=== PATIENT | male | born 1955 | race Caucasian/White ===

== ENCOUNTER → 2016-09-01 | Outpatient (CLI) | payer OTHER ==
[~2016-09-01] MED LIST: ASPI81TA28 PO; CYAN10005 PO; FERR325T51 PO; GEMF600T3 PO; GLIP2.5T11 PO; HYDR-5688 PO; METF-384 PO; METF1000 PO; MULT-506 PO; OXYC-164 PO; OXYC-609 PO; OXYC1TAB3 PO; PRED50TA PO; SIMV40TA4 PO; XNX25 PO; ZCR40 PO
[2016-09-02 05:51] LABS: ESTIMATED AVERAGE GLUCOSE 143 mg/dl; HA1C FLAG Normal (Normal)
== END | disposition home or self-care (01) ==
LOC: C.LAB1850 16:23
PROVIDERS: ATTEND Internal Medicine
DX: E11.9 Type 2 diabetes mellitus without complications (principal)

== ENCOUNTER → 2016-12-29 | Outpatient (CLI) | payer OTHER ==
[2016-12-29 12:42] LABS: BASO % 0.1 %; BASO ABS # 0.01 K/uL (0-0.2); COMPLETE YES; EOS % 1.1 %; HEMATOCRIT 41.3 % (42-52); IG% 0.3 %; LYMPH % 22.9 %; LYMPH ABS # 1.62 K/uL (1.2-3.4); MEAN CELL VOLUME 91.8 fL (80-100); MEAN CORPUSCULAR HEMOGLOBIN 30.2 pg (25-34); MEAN CORPUSCULAR HGB CONC 32.9 g/dl (32-36); MEAN PLATELET VOLUME 9.6 fL (7.4-10.4); MONO % 9.7 %; NEUT % 65.9 %; PLATELET COUNT 274 K/uL (130-400); WHITE BLOOD COUNT 7.08 K/uL (4.8-10.8)
[2016-12-29 12:56] LABS: ESTIMATED AVERAGE GLUCOSE 117 mg/dl; HA1C FLAG Normal (Normal)
[2016-12-29 13:12] LABS: ALT/SGPT 46 U/L (12-78); AST/SGOT 26 U/L (15-37); BLOOD UREA NITROGEN 16 mg/dl (7-18); BUN/CREATININE RATIO 17.9 (10-20); CALCIUM 9.5 mg/dl (8.5-10.1); CARBON DIOXIDE 30 mmol/L (21-32); CHLORIDE 105 mmol/L (98-107); GLUCOSE 127 mg/dl (70-99); POTASSIUM 3.9 mmol/L (3.5-5.1); SODIUM 142 mmol/L (136-145)
[2016-12-29 13:23] LABS: CHOLESTEROL 136 mg/dl (0-200); CHOLESTEROL/HDL RATIO 3.5; HDL CHOLESTEROL 39 mg/dl; LDL CHOLESTEROL CALCULATED 75 mg/dl; THYROID STIMULATING HORMONE 0.104 uIu/ml (0.300-4.500); TRIGLYCERIDES 111 mg/dl (0-150); VERY LOW DENSITY LIPOPROT CALC 22 mg/dl
== END | disposition home or self-care (01) ==
LOC: C.LAB1850 11:26
PROVIDERS: ATTEND Physician Assistant
DX: E11.9 Type 2 diabetes mellitus without complications (principal)

== ENCOUNTER → 2017-03-04 | Outpatient (CLI) | payer OTHER ==
[~2017-03-04] MED LIST changes: -CYAN10005 PO; -GLIP2.5T11 PO; -METF-384 PO; -OXYC-609 PO; -OXYC1TAB3 PO; -PRED50TA PO; -XNX25 PO; -ZCR40 PO
--- NOTE | 2017-03-04 15:11 | DIAGNOSTIC IMAGING REPORT ---
RIGHT FOOT MIN 3 VIEWS ROUTINE CLINICAL HISTORY: 61 years-old Male presenting with right heel pain. Right. TECHNIQUE: Frontal, oblique, and lateral views of the right foot were obtained. COMPARISON: None. FINDINGS: No acute fracture, malalignment, or radiopaque foreign body. Bony spurring noted at the inferior calcaneus. No other degenerative change. IMPRESSION: 1. Inferior calcaneal bone spurring. This finding can be incidental/asymptomatic or associated with plantar fasciitis in some patients. No acute osseous injury. Electronically signed by: Sj Jacobsen 03/04/2017 3:10 PM Dictated Date/Time: 03/04/2017 3:07 PM
== END | disposition home or self-care (01) ==
LOC: C.RAD1850 14:45
PROVIDERS: ATTEND Physician Assistant
DX: M79.673 Pain in unspecified foot (principal)

== ENCOUNTER → 2017-05-04 | Outpatient (CLI) | payer OTHER ==
[2017-05-04 16:04] LABS: THYROID STIMULATING HORMONE 1.98 uIu/ml (0.300-4.500)
[2017-05-05 06:08] LABS: ESTIMATED AVERAGE GLUCOSE 117 mg/dl; HA1C FLAG Normal (Normal)
== END | disposition home or self-care (01) ==
LOC: C.LAB1850 14:15
PROVIDERS: ATTEND Physician Assistant
DX: R94.6 Abnormal results of thyroid function studies (principal); E11.9 Type 2 diabetes mellitus without complications; E78.00 Pure hypercholesterolemia, unspecified

== ENCOUNTER → 2017-06-07 | Outpatient (CLI) | payer OTHER ==
--- NOTE | 2017-06-07 15:47 | DIAGNOSTIC IMAGING REPORT ---
THORACIC SPINE 3 VIEWS ROUTINE CLINICAL HISTORY: 61 years-old Male presenting with M54.5 Chronic low back [id number]. TECHNIQUE: 3 views of the thoracic spine were obtained. COMPARISON: 01/08/2016. FINDINGS: Vertebral bodies maintain normal height and alignment. Intervertebral disc spaces preserved. Multilevel degenerative changes noted throughout the thoracic spine. Degenerative changes in the lower cervical spine partially visualized. No radiographic evidence of compression deformity or subluxation. No scoliotic curvature. Visualized portion of the thorax and upper abdomen within normal limits. IMPRESSION: Multilevel degenerative changes. No radiographic evidence of compression fracture. Electronically signed by: Sj Jacobsen M.D. 06/07/2017 3:45 PM Dictated Date/Time: 06/07/2017 3:44 PM
--- NOTE | 2017-06-07 16:46 | DIAGNOSTIC IMAGING REPORT ---
LUMBAR SPINE 5 VIEWS CLINICAL HISTORY: Chronic low back pain. FINDINGS: Five views of the lumbar spine are compared to study dated 01/08/2016. The skeletal structures are osteopenic. There is no radiographic evidence of fracture or malalignment. Vertebral body height and alignment are maintained throughout the lumbar spine. The transverse and spinous processes appear intact. Anterior osteophytes are seen throughout. Mild facet arthropathy is seen in the lower lumbar region. There is no evidence of spondylolysis. There is mild disc space narrowing at L4-L5 and L5-S1. Mild endplate sclerosis is seen at L2-L3. The visualized bony pelvis appears intact. Sclerotic change is noted in the sacroiliac joints. Large enthesophytes arise in the anterior superior iliac spine bilaterally. There is a nonobstructed abdominal bowel gas pattern. Mild atherosclerotic calcification is noted in the abdominal aorta. IMPRESSION: 1. No acute bony abnormality is seen involving the lumbosacral spine. 2. Osteopenia and spondylotic change as above. Dictated: 06/07/2017 3:35 PM Transcribed: 06/07/2017 4:45 PM [email or web address] Electronically signed by: Jaron Du M.D. 06/08/2017 7:11 AM Dictated Date/Time: 06/07/2017 3:35 PM
== END | disposition home or self-care (01) ==
LOC: C.RAD1850 14:41
PROVIDERS: ATTEND Physician Assistant
DX: M54.5 Low back pain (principal); M85.88 Other specified disorders of bone density and structure, other site

== ENCOUNTER 2017-06-15 17:17 | Emergency (ER) | payer OTHER ==
[~2017-06-15] VITALS: Ht 170.2 cm; Wt 99.6 kg
[~2017-06-15 17:17] MED LIST changes: -ASPI81TA28 PO; -HYDR-5688 PO
[2017-06-15 17:35] VITALS: TEMP 36.9; Ht 170.2 cm; Wt 99.6 kg
[2017-06-15] MEDS ORDERED: MoRPHine SULFATE 10 MG/ML CARP/VIAL IM STA (17:56)
[2017-06-15] MEDS ORDERED: DEXAMETHASONE SOD INJ 10 MG/ML VIAL IM ONE (18:00)
[2017-06-15] MEDS ORDERED: GLIP2.5T11 PO (18:39)
[2017-06-15] MEDS ORDERED: METF-384 PO (18:39)
[2017-06-15] MEDS ORDERED: ZCR40 PO (18:39)
[2017-06-15] MEDS ORDERED: OXYC-609 PO (18:39)
[2017-06-15] MEDS ORDERED: XNX25 PO (18:39)
[2017-06-15] MEDS ORDERED: CYAN10005 PO (18:42)
[2017-06-15 19:28] LABS: BUN/CREATININE RATIO 19.8 (10-20); CALCIUM 9.4 mg/dl (8.5-10.1); CREATININE 0.77 mg/dl (0.60-1.40)
--- NOTE | 2017-06-15 21:07 | EMERGENCY ROOM VISIT NOTE ---
History First contact with patient: 17:45 Chief Complaint: BACK PAIN Stated Complaint: BACK PAIN History of Present Illness The patient is a 61 year old male who presents to the Emergency Room with complaints of low back pain with radiation into the right buttocks. The patient denies any pain radiating down his legs or any new numbness and tingling. The patient denies any loss of bowel or bladder control. The patient denies any saddle anesthesia. The patient states that he had low back surgery by Dr. Fox in 2008. Since that time he has some numbness in his right leg on the anterior aspect therefore that is chronic. He states he has had chronic back pain since surgery. He is currently taking [place] 5/325 mg 3 tablets daily and oxycodone 5 mg daily for his chronic pain. He states he gets this pain medication from his family doctor, Dr. Jacobs. The patient denies any new injury to the back. He denies any fall. He states the pain is worse when he goes from a sitting to a standing position. Review of Systems 10 system review was performed and was negative unless stated otherwise history of present illness. Social History Smoking Status: Never Smoker Alcohol Use: occasionally Marital Status: Housing Status: lives with family Occupation Status: unemployed Current/Historical Medications Scheduled Aspirin (Aspirin Ec), 81 MG PO DAILY Cyanocobalamin (Vitamin B-12), 1,000 MCG PO DAILY Gemfibrozil (Lopid), 600 MG PO BID Glipizide (Glipizide Er), 2.5 MG PO DAILY Metformin Hcl (Glucophage), 1,000 MG PO BID Multivitamin (Multivitamin), 1 TAB PO DAILY Simvastatin (Simvastatin), 40 MG PO HS Scheduled PRN Alprazolam (Alprazolam), 0.25-0.5 MG PO HS PRN for Anxiety Hydrocodone/Acetaminophen 5MG/325MG ([place] 5MG/325MG), 1 TAB PO Q6H PRN for Pain Oxycodone HCl (Oxycodone HCl), 5 MG PO Q6H PRN for Pain Physical Exam Vital Signs Date Time Temp Pulse Resp B/P (MAP) Pulse Ox O2 Delivery O2 Flow Rate FiO2 06/15/17 19:50 63 18 138/83 97 Room Air 06/15/17 17:35 36.9 93 20 168/78 98 Room Air Physical Exam PHYSICAL EXAM: Vital Signs normal: Reviewed Nurse's notes and agree. GEN.: 61- year-old male appears in no acute distress. MENTAL STATUS: Alert and oriented in no acute distress. LUMBAR SPINE: No gross bony abnormality noted. Patient is nontender to palpation over the spinous processes. He is tender to palpation over the right paravertebral region, left side nontender. He has limited range of motion in all directions secondary to pain. Muscle strength is 5 out of 5 bilateral lower extremities and symmetrical. NEURO: Patient is able to heel and toe walk without difficulty. I lateral patellar and Achilles reflexes are 2+. Sensation is intact to pinprick bilateral lower extremities. Negative straight leg raise bilaterally. Medical Decision & Procedures Laboratory Results 06/15/17 18:43 Test 06/15/17 18:43 Anion Gap 8.0 mmol/L (3-11) Est Creatinine Clear Calc Drug Dose 113.3 ml/min Estimated GFR () 113.5 Estimated GFR (Non- 97.9 BUN/Creatinine Ratio 19.8 (10-20) Calcium Level 9.4 mg/dl (8.5-10.1) Medications Administered Medications (Trade) Dose Ordered Sig/Juana Route Start Time Stop Time Status Last Admin Dose Admin Morphine Sulfate (MoRPHine SULFATE INJ) 10 mg NOW STAT IM 06/15/17 17:56 06/15/17 18:01 DC 06/15/17 18:05 10 MG Dexamethasone Sodium Phosphate (Decadron Inj) 10 mg NOW ONCE IM 06/15/17 18:00 06/15/17 18:01 DC 06/15/17 18:05 10 MG ED Course The patient was evaluated. The patient was given Decadron 10 mg IM and morphine 10 mg IM. IV access was obtained. Renal profile was normal. Due to the patient's surgical history an MRI of the lower spine was ordered . At the end of my shift the MRI was still pending therefore the patient's case was signed out to Murtaza Lawton PA-C. Please see his note for remainder of patient's care. Medical Decision Differential diagnosis include lumbar strain, spinal stenosis, herniated disc, scar tissue secondary to surgery. Due to the patient's history of back surgery as well as not being controlled on narcotics on an outpatient an MRI was performed. Medication Reconcilliation Current Medication List: was personally reviewed by me Blood Pressure Screening Patient's blood pressure: Elevated blood pressure Blood pressure disposition: Elevated BP felt to be situational Impression Primary Impression: Low back pain Departure Information Referrals Vahe Jacobs M.D. (PCP) Patient Instructions [facility]
--- NOTE | 2017-06-15 21:31 | DIAGNOSTIC IMAGING REPORT ---
ORBIT RADIOGRAPHS 3 VIEWS HISTORY: pre-MRI screening. COMPARISON: None. FINDINGS: There are no radiopaque foreign bodies identified within the orbits. IMPRESSION: No radiopaque foreign bodies identified within the orbits. Electronically signed by: Ranulfo West M.D. 06/15/2017 9:30 PM Dictated Date/Time: 06/15/2017 9:30 PM
[2017-06-15] MEDS ORDERED: HYDR-5688 PO (21:55)
[2017-06-15] MEDS ORDERED: ASPI81TA28 PO (21:55)
[2017-06-15] MEDS ORDERED: GADAVIST IV PRN (22:15)
--- NOTE | 2017-06-15 22:43 | DIAGNOSTIC IMAGING REPORT ---
LUMBAR SPINE MRI WITH AND WITHOUT CONTRAST HISTORY: acute on chronic low back pain/prior surgery TECHNIQUE: Multiplanar multisequence MRI of the lumbar spine was performed both before and after the intravenous administration of contrast. COMPARISON: Lumbar spine 06/07/2017. FINDINGS: For the purpose of the report the L5-S1 disc space will be located on axial image 27 of 30. Alignment and curvature are intact. No fractures within the lumbar spine. Mild disc space narrowing at L5-S1 persists. There is partial fusion involving the posterior aspect of the L5-S1 vertebral bodies. Increased T2 signal within the anterior L5-S1 disc space. However, there is no endplate erosions. Therefore, this is likely due to long-standing postoperative and degenerative change. Mild endplate degenerative changes at L5. The conus terminates at the L1 level. L1-L2: No significant central canal or neural foraminal narrowing. L2-L3: No significant central canal or neural foraminal narrowing. L3-L4: No significant central canal or neural foraminal narrowing. L4-L5: No significant central canal or neural foraminal narrowing. L5-S1: Postoperative changes consistent with prior right-sided hemilaminectomy. No significant central canal narrowing. Focal central/right paracentral posterior bony protrusion of the fused L5-S1 disc at this level which abuts and slightly compresses the transiting right S1 nerve root. This also results in mild to moderate right-sided neural foraminal narrowing. Mild soft tissue enhancement at the epidural space adjacent to the bony protrusion is likely due to postoperative granulation tissue. No significant left-sided neural foraminal narrowing. IMPRESSION: 1. There are postoperative changes at L5-S1 suggestive of a prior right-sided hemilaminectomy. There appears to be fusion of the posterior aspect of the L5-S1 vertebral bodies with focal bony protrusion posteriorly. This is most pronounced within the central/right paracentral location. This abuts and slightly compresses the transiting right S1 nerve root and results in mild to moderate right-sided neural foraminal narrowing at L5-S1. Mild soft tissue enhancement at the epidural space adjacent to the posterior bony protrusion is likely due to postoperative granulation tissue. 2. Otherwise, no significant central canal or neural foraminal narrowing within the remaining lumbar spine levels. Electronically signed by: Ranulfo West M.D. 06/15/2017 10:41 PM Dictated Date/Time: 06/15/2017 10:30 PM
[2017-06-15] MEDS ORDERED: PRED50TA PO (23:25)
[2017-06-15] MEDS ORDERED: OXYC1TAB3 PO (23:25)
--- NOTE | 2017-06-15 23:26 | EMERGENCY ROOM VISIT NOTE ---
ED Visit Note First contact with patient: 21:12 Patient case was signed out to me by Destiny Montejo PA-C at 2100 hrs. pending MRI. MRI results as below. Please refer to her history and physical examination regarding the patient. MRI reveals postoperative change, no emergent process. He is recommended follow up with his established orthopedic surgeon, or Dr. Downing or Dr. Mcnamara, as the surgeon who performed this is no longer affiliated with the hospital. He is able to ambulate. I will initiate a short course of steroids and pain medicine in addition to his baseline pain medicine. P D MP reveals no red flags. No evidence of cauda equina syndrome on exam. He appears stable for outpatient management. MRI was discussed with the attending physician. IMAGING: LUMBAR SPINE MRI WITH AND WITHOUT CONTRAST HISTORY: acute on chronic low back pain/prior surgery TECHNIQUE: Multiplanar multisequence MRI of the lumbar spine was performed both before and after the intravenous administration of contrast. COMPARISON: Lumbar spine 06/07/2017. FINDINGS: For the purpose of the report the L5-S1 disc space will be located on axial image 27 of 30. Alignment and curvature are intact. No fractures within the lumbar spine. Mild disc space narrowing at L5-S1 persists. There is partial fusion involving the posterior aspect of the L5-S1 vertebral bodies. Increased T2 signal within the anterior L5-S1 disc space. However, there is no endplate erosions. Therefore, this is likely due to long-standing postoperative and degenerative change. Mild endplate degenerative changes at L5. The conus terminates at the L1 level. L1-L2: No significant central canal or neural foraminal narrowing. L2-L3: No significant central canal or neural foraminal narrowing. L3-L4: No significant central canal or neural foraminal narrowing. L4-L5: No significant central canal or neural foraminal narrowing. L5-S1: Postoperative changes consistent with prior right-sided hemilaminectomy. No significant central canal narrowing. Focal central/right paracentral posterior bony protrusion of the fused L5-S1 disc at this level which abuts and slightly compresses the transiting right S1 nerve root. This also results in mild to moderate right-sided neural foraminal narrowing. Mild soft tissue enhancement at the epidural space adjacent to the bony protrusion is likely due to postoperative granulation tissue. No significant left-sided neural foraminal narrowing. IMPRESSION: 1. There are postoperative changes at L5-S1 suggestive of a prior right-sided hemilaminectomy. There appears to be fusion of the posterior aspect of the L5-S1 vertebral bodies with focal bony protrusion posteriorly. This is most pronounced within the central/right paracentral location. This abuts and slightly compresses the transiting right S1 nerve root and results in mild to moderate right-sided neural foraminal narrowing at L5-S1. Mild soft tissue enhancement at the epidural space adjacent to the posterior bony protrusion is likely due to postoperative granulation tissue. 2. Otherwise, no significant central canal or neural foraminal narrowing within the remaining lumbar spine levels. Electronically signed by: Ranulfo West M.D. 06/15/2017 10:41 PM Dictated Date/Time: 06/15/2017 10:30 PM Current/Historical Medications Scheduled Aspirin (Aspirin Ec), 81 MG PO DAILY Cyanocobalamin (Vitamin B-12), 1,000 MCG PO DAILY Gemfibrozil (Lopid), 600 MG PO BID Glipizide (Glipizide Er), 2.5 MG PO DAILY Metformin Hcl (Glucophage), 1,000 MG PO BID Multivitamin (Multivitamin), 1 TAB PO DAILY Prednisone (Prednisone), 50 MG PO DAILY Simvastatin (Simvastatin), 40 MG PO HS Scheduled PRN Alprazolam (Alprazolam), 0.25-0.5 MG PO HS PRN for Anxiety Hydrocodone/Acetaminophen 5MG/325MG ([place] 5MG/325MG), 1 TAB PO Q6H PRN for Pain Oxycodone HCl (Oxycodone HCl), 5 MG PO Q6H PRN for Pain Oxycodone Ir (Roxicodone Ir), 1-2 TAB PO Q4H PRN for Pain Allergies Coded Allergies: No Known Allergies (Unverified , 06/15/17) Vital Signs Date Time Temp Pulse Resp B/P (MAP) Pulse Ox O2 Delivery O2 Flow Rate FiO2 06/15/17 23:33 71 20 159/86 95 06/15/17 22:29 74 20 154/83 93 Room Air 06/15/17 19:50 63 18 138/83 97 Room Air 06/15/17 17:35 36.9 93 20 168/78 98 Room Air Laboratory Results 06/15/17 18:43 Test 06/15/17 18:43 Anion Gap 8.0 mmol/L (3-11) Est Creatinine Clear Calc Drug Dose 113.3 ml/min Estimated GFR () 113.5 Estimated GFR (Non- 97.9 BUN/Creatinine Ratio 19.8 (10-20) Calcium Level 9.4 mg/dl (8.5-10.1) Medications Administered Medications (Trade) Dose Ordered Sig/Juana Route Start Time Stop Time Status Last Admin Dose Admin Morphine Sulfate (MoRPHine SULFATE INJ) 10 mg NOW STAT IM 06/15/17 17:56 06/15/17 18:01 DC 06/15/17 18:05 10 MG Dexamethasone Sodium Phosphate (Decadron Inj) 10 mg NOW ONCE IM 06/15/17 18:00 06/15/17 18:01 DC 06/15/17 18:05 10 MG Departure Information Impression Primary Impression: Low back pain Dispostion Home / Self-Care Condition GOOD Prescriptions Prednisone (Prednisone) 50 Mg Tab 50 MG PO DAILY for 4 Days, #4 TAB Prov: Murtaza Lawton PA-C 06/15/17 Oxycodone Ir (Roxicodone Ir) 5 Mg Tab 1-2 TAB PO Q4H Y for Pain, #15 TAB For Initial Treatment Prov: Murtaza Lawton PA-C 06/15/17 Referrals Vahe Jacobs M.D. (PCP) Buck Downing D.O. Andrey Mcnamara, DO Patient Instructions [facility] Additional Instructions You have been treated in the Emergency Department for Back Pain. You have received pain medicine in the emergency department which impairs your ability to operate a vehicle. It is illegal for you to drive after receiving these medicines. You have been prescribed Oxy IR to be used for pain control. This is a narcotic medication. You cannot drive or consume alcohol while on this medicine. This medicine should only be used for pain that cannot be controlled with over-the- counter pain medicines. You have been prescribed Prednisone 50 mg to be taken orally once a day for the next 4 days. This is an anti-inflammatory medicine to be used to help minimize your symptoms. You should take the COMPLETE course of the medication. For pain control, you can use the following icld-ain-hthjatr medicines (if >12 yo): If this is an acute injury, ice can be applied to the area of pain for the first 3 days to help decrease pain and inflammation. After the first 3 days, a heating pad can be used over the area for continued soothing relief. You should schedule a follow-up appointment in 2-3 days with your Primary Care Provider for further evaluation and treatment of your back pain. Please also call Dr. Downing or Dr. Mcnamara Return to the Emergency Department if your current symptoms worsen despite treatment course outlined above, or if you develop any of the following symptoms : intractable pain despite aforementioned treatment course, loss of control of your bowel or bladder, numbness or tingling in your groin, or development of a fever.
[2017-06-15 23:33] VITALS: BP 159/86; PULSE 71; O2SAT 95
== END 2017-06-15 23:34 | disposition home or self-care (01) ==
LOC: C.EDB 17:17 → C.EDD 23:34
DX: M54.5 Low back pain (principal); Z79.82 Long term (current) use of aspirin; Z79.84 Long term (current) use of oral hypoglycemic drugs

== ENCOUNTER → 2017-09-07 | Outpatient (CLI) | payer OTHER ==
[~2017-09-07] MED LIST changes: +ASPI81TA28 PO; +CYAN10005 PO; -FERR325T51 PO; +GLIP2.5T11 PO; +HYDR-5688 PO; +METF-384 PO; -METF1000 PO; -OXYC-164 PO; +OXYC-609 PO; +OXYC1TAB3 PO; -SIMV40TA4 PO; +XNX25 PO; +ZCR40 PO
[2017-09-07 13:27] LABS: BASO % 0.2 %; BASO ABS # 0.01 K/uL (0-0.2); EOS % 2.9 %; EOS ABS # 0.16 K/uL (0-0.5); HEMATOCRIT 38.6 % (42-52); HEMOGLOBIN 13.3 g/dL (14.0-18.0); IG# 0.01 K/uL (0.00-0.02); LYMPH ABS # 1.79 K/uL (1.2-3.4); MEAN CELL VOLUME 90.8 fL (80-100); MEAN CORPUSCULAR HEMOGLOBIN 31.3 pg (25-34); MEAN CORPUSCULAR HGB CONC 34.5 g/dl (32-36); MEAN PLATELET VOLUME 9.5 fL (7.4-10.4); MONO % 10.9 %; MONO ABS # 0.59 K/uL (0.11-0.59); NEUT % 52.8 %; NEUT ABS # 2.87 K/uL (1.4-6.5); PLATELET COUNT 235 K/uL (130-400); RED CELL DISTRIBUTION WIDTH SD 42.9 fL (36.4-46.3); WHITE BLOOD COUNT 5.43 K/uL (4.8-10.8)
[2017-09-07 13:32] LABS: HEMOGLOBIN A1C 6.1 % (4.5-5.6)
[2017-09-07 16:42] LABS: ALT/SGPT 44 U/L (12-78); AST/SGOT 30 U/L (15-37); BLOOD UREA NITROGEN 16 mg/dl (7-18); CALCIUM 8.8 mg/dl (8.5-10.1); CARBON DIOXIDE 27 mmol/L (21-32); CHOLESTEROL 165 mg/dl (0-200); CREATININE 0.91 mg/dl (0.60-1.40); GLUCOSE 162 mg/dl (70-99); SODIUM 137 mmol/L (136-145)
[2017-09-07 16:45] LABS: LDL CHOLESTEROL CALCULATED 99 mg/dl
== END | disposition home or self-care (01) ==
LOC: C.LAB1850 11:52
PROVIDERS: ATTEND Physician Assistant
DX: E11.9 Type 2 diabetes mellitus without complications (principal); E78.00 Pure hypercholesterolemia, unspecified

== ENCOUNTER → 2017-12-10 | Outpatient (CLI) | payer OTHER ==
--- NOTE | 2017-12-10 11:35 | DIAGNOSTIC IMAGING REPORT ---
RIGHT KNEE 4 VIEWS CLINICAL HISTORY: Right knee pain. FINDINGS: AP, lateral, tunnel, and sunrise views of the right knee are obtained. No prior studies are available for comparison at the time of dictation. The skeletal structures are well mineralized. No fracture is seen. There is mild to moderate degenerative narrowing at the patellofemoral articulation. The medial and lateral compartments are preserved. There is no evidence of osteochondral defect on the tunnel image. There are superior patellar enthesophytes. A calcified fabella is incidentally noted. A small joint effusion is suspected. Mild prepatellar soft tissue swelling is observed. IMPRESSION: 1. Prepatellar soft tissue swelling and suspect a small joint effusion. No acute bony abnormality is identified. 2. Mild degenerative change as above. Electronically signed by: Jaron Du M.D. 12/10/2017 11:34 AM Dictated Date/Time: 12/10/2017 11:33 AM
[2017-12-10 12:40] LABS: HEMOGLOBIN A1C 6.3 % (4.5-5.6)
== END | disposition home or self-care (01) ==
LOC: C.RAD1850 11:15
PROVIDERS: ATTEND Physician Assistant
DX: M25.561 Pain in right knee (principal); E78.00 Pure hypercholesterolemia, unspecified; M79.9 Soft tissue disorder, unspecified

== ENCOUNTER → 2018-03-16 | Outpatient (CLI) | payer OTHER ==
[~2018-03-16] MED LIST changes: +ALPR0.254 PO; -OXYC1TAB3 PO; -XNX25 PO
[2018-03-16 12:29] LABS: BASO % 0.1 %; BASO ABS # 0.01 K/uL (0-0.2); EOS % 3.2 %; EOS ABS # 0.22 K/uL (0-0.5); HEMATOCRIT 38.6 % (42-52); HEMOGLOBIN 13.4 g/dL (14.0-18.0); IG# 0.02 K/uL (0.00-0.02); LYMPH % 27.5 %; LYMPH ABS # 1.91 K/uL (1.2-3.4); MEAN CELL VOLUME 90.4 fL (80-100); MEAN CORPUSCULAR HEMOGLOBIN 31.4 pg (25-34); MEAN CORPUSCULAR HGB CONC 34.7 g/dl (32-36); MEAN PLATELET VOLUME 9.4 fL (7.4-10.4); MONO % 9.5 %; MONO ABS # 0.66 K/uL (0.11-0.59); NEUT % 59.4 %; NEUT ABS # 4.12 K/uL (1.4-6.5); PLATELET COUNT 255 K/uL (130-400); RED CELL DISTRIBUTION WIDTH CV 12.9 % (11.5-14.5); RED CELL DISTRIBUTION WIDTH SD 42.2 fL (36.4-46.3); WHITE BLOOD COUNT 6.94 K/uL (4.8-10.8)
[2018-03-16 12:58] LABS: ALT/SGPT 47 U/L (12-78); AST/SGOT 33 U/L (15-37); BLOOD UREA NITROGEN 17 mg/dl (7-18); CARBON DIOXIDE 27 mmol/L (21-32); CHOLESTEROL 150 mg/dl (0-200); CREATININE 0.94 mg/dl (0.60-1.40); GLUCOSE 131 mg/dl (70-99); LDL CHOLESTEROL CALCULATED 84 mg/dl; POTASSIUM 3.7 mmol/L (3.5-5.1); SODIUM 138 mmol/L (136-145); URIC ACID 5.8 mg/dl (2.6-7.2)
[2018-03-16 13:11] LABS: HEMOGLOBIN A1C 6.1 % (4.5-5.6)
== END | disposition home or self-care (01) ==
LOC: C.LABBFT 09:41
PROVIDERS: ATTEND Internal Medicine
DX: E11.9 Type 2 diabetes mellitus without complications (principal)